=== PATIENT | male | born 1995 | race Caucasian/White ===

== ENCOUNTER 2019-12-01 13:55 | Emergency (ER) | payer SELFPAY ==
[2019-12-01] MEDS ORDERED: ONDANSETRON HCL INJ/PF 4 MG/2 ML SDV IV ONE (14:46)
[2019-12-01] MEDS ORDERED: NORMAL SALINE 1000 ML 1,000 ML IV ONE ×3 (14:46→17:34)
--- NOTE | 2019-12-01 14:48 | ER Document Report ---
ED Medical Screen (RME) - General Chief Complaint: Abdominal Pain Stated Complaint: ABDOMINAL PAIN Time Seen by Provider: 12/01/19 14:45 Notes: Patient is a 24-year-old male presents emergency department with a chief complaint of "alcohol poisoning." Patient reports last night he was drinking a large amount of liquor and beer. Patient unable to state how much he drank. Patient reports he has vomited all morning long but is unable to tell me how many times he has vomited. Patient denies recreational drug use or IV drug use. Patient reports generalized abdominal pain. - Related Data Allergies/Adverse Reactions: No Known Allergies Allergy (Verified 12/01/19 14:43) Physical Exam - Vital signs Vitals: Pulse Resp BP Pulse Ox 111 H 22 H 120/74 100 12/01/19 14:29 12/01/19 14:29 12/01/19 14:29 12/01/19 14:29 Course - Re-evaluation Re-evalutation: 12/01/19 14:47 Patient reports extremely nauseous in triage. No active vomiting. Patient require a thorough abdominal exam once placed in a private room on a stretcher. Patient is slightly tachycardic with a heart rate of 111. Will initiate basic labs, IV fluids and antipyretic. I have greeted and performed a rapid initial assessment of this patient. A comprehensive ED assessment and evaluation of the patient, analysis of test results and completion of the medical decision making process will be conducted by additional ED providers. - Vital Signs Vital signs: Temp Pulse Resp BP Pulse Ox 111 H 22 H 120/74 100 12/01/19 14:29 12/01/19 14:29 12/01/19 14:29 12/01/19 14:29
[2019-12-01 15:03] LABS: ABSOLUTE NEUT (AUTO) 17.2 10^3/uL (1.7-8.2); BASOPHILS % (AUTO) 0.2 % (0-2); HEMATOCRIT 48.9 % (37.9-51.0); LYMPHOCYTES % (AUTO) 5.4 % (13-45); MEAN CORPUSCULAR HEMOGLOBIN 31.5 pg (27.0-33.4); MEAN CORPUSCULAR HGB CONC 34.7 g/dL (32.0-36.0); MEAN CORPUSCULAR VOLUME 91 fl (80-97); MONOCYTES % (AUTO) 5.1 % (3-13); PLATELET COUNT 352 10^3/uL (150-450); RED BLOOD COUNT 5.38 10^6/uL (4.35-5.55); RED CELL DISTRIBUTION WIDTH 13.3 % (11.5-14.0); SEGMENTED NEUTROPHILS % (AUTO) 89.3 % (42-78); TOTAL CELLS COUNTED % (AUTO) 100 %; WHITE BLOOD COUNT 19.2 10^3/uL (4.0-10.5)
[2019-12-01 15:22] LABS: ALBUMIN 5.8 g/dL (3.5-5.0); ALCOHOL 33 mg/dL (NONE DETECTED); ALKALINE PHOSPHATASE 66 U/L (38-126); ASPARTATE AMINO TRANSFERASE 50 U/L (17-59); BILIRUBIN,DIRECT 0.3 mg/dL (0.0-0.4); BILIRUBIN,TOTAL 0.7 mg/dL (0.2-1.3); BLOOD UREA NITROGEN 27 mg/dL (7-20); CALCIUM 10.7 mg/dL (8.4-10.2); CHLORIDE 104 mmol/L (98-107); GLUCOSE 83 mg/dL (75-110); POTASSIUM 4.3 mmol/L (3.6-5.0); TOTAL PROTEIN 9.5 g/dL (6.3-8.2)
[2019-12-01 15:27] LABS: CARBON DIOXIDE 22 mmol/L (22-30)
[2019-12-01 15:28] LABS: ANION GAP 21 (5-19)
[2019-12-01] MEDS ORDERED: METOCLOPRAMIDE HCL INJ/PF 10 MG/2 ML SDV IV ONE (16:14)
--- NOTE | 2019-12-01 16:18 | ER Document Report ---
ED General - General Chief Complaint: ETOH Abuse Stated Complaint: ABDOMINAL PAIN Time Seen by Provider: 12/01/19 14:45 Mode of Arrival: Ambulatory Information source: Patient TRAVEL OUTSIDE OF THE [place] IN LAST 30 DAYS: No - HPI Onset: This morning Onset/Duration: Sudden Quality of pain: Achy Severity: Severe Pain Level: 1 Associated symptoms: Nausea, Vomiting Exacerbated by: Food Relieved by: Denies Similar symptoms previously: No Recently seen / treated by doctor: No Notes: 24 year old male with a history of alcohol abuse here for persistent nausea and vomiting since this morning with mild abdominal pains. The patient was drinking heavily last night (he cannot quantify but he says it is a lot) and this morning he has been throwing up nonstop and he has been having shaking chills. The patient denies fevers or sweats. The patient has never had alcohol withdrawal in the past. The patient says his abdomen hurts but he has no focal pain. The patient says he has been able to keep nothing down (not even water). - Related Data Allergies/Adverse Reactions: No Known Allergies Allergy (Verified 12/01/19 14:43) Past Medical History - General Information source: Patient - Social History Smoking Status: Current Every Day Smoker Chew tobacco use (# tins/day): No Frequency of alcohol use: Heavy Drug Abuse: None Lives with: Alone Family History: Reviewed & Not Pertinent Patient has suicidal ideation: No Patient has homicidal ideation: No Review of Systems - Review of Systems Constitutional: Chills EENT: No symptoms reported Cardiovascular: No symptoms reported Respiratory: No symptoms reported Gastrointestinal: Abdominal pain, Nausea, Vomiting Genitourinary: No symptoms reported Male Genitourinary: No symptoms reported Musculoskeletal: No symptoms reported Skin: No symptoms reported Hematologic/Lymphatic: No symptoms reported Neurological/Psychological: No symptoms reported -: Yes All other systems reviewed and negative Physical Exam - Vital signs Vitals: Pulse BP Pulse Ox 107 H 120/74 100 12/01/19 14:28 12/01/19 14:28 12/01/19 14:28 - Notes Notes: GENERAL: Somewhat ill-appearing, wrapped in blankets, well-nourished and in no acute distress. HEAD: Atraumatic, normocephalic. EYES: Pupils equal round and reactive to light, extraocular movements intact, sclera anicteric, conjunctiva are normal. ENT: Nares patent, oropharynx clear without exudates. Moist mucous membranes. NECK: Normal range of motion, supple without lymphadenopathy or JVD. LUNGS: Breath sounds clear to auscultation bilaterally and equal. No wheezes rales or rhonchi. HEART: Regular rate and rhythm without murmurs, rubs or gallops. ABDOMEN: Soft, nontender, normoactive bowel sounds. No guarding, no rebound. No masses appreciated. EXTREMITIES: Normal range of motion, no pitting or edema. No clubbing or cyanos is. NEUROLOGICAL: Cranial nerves II through XII grossly intact. Normal speech, normal gait. PSYCH: Normal mood, normal affect. SKIN: Warm, Dry, normal turgor, no rashes or lesions noted. Course - Re-evaluation Re-evalutation: 12/01/19 16:27 The patient was drinking heavily last night and today he has been vomiting all day. The patient's labs show he has an anion gap acidosis. Will treat patient with fluids and antiemetics and recheck a chemistry to ensure his anion gap closes. Patient denies daily drinking and he says he just binged last night. 12/01/19 20:34 The patient's anion gap and lactic acid normalized after IV fluids. Patient is able to tolerate POs at this point. Patient is safe for outpatient follow up. Will DC patient with Zofran. - Vital Signs Vital signs: Temp Pulse Resp BP Pulse Ox 98.5 F 103 H 16 123/70 100 12/01/19 17:33 12/01/19 17:33 12/01/19 17:33 12/01/19 17:33 12/01/19 17:33 - Laboratory Result Diagrams: 12/01/19 14:50 12/01/19 17:02 Laboratory results interpreted by me: 12/01/19 12/01/19 12/01/19 14:50 14:50 17:02 WBC 19.2 H Lymph % (Auto) 5.4 L Absolute Neuts (auto) 17.2 H Seg Neutrophils % 89.3 H Sodium 147.3 H Chloride Anion Gap 21 H BUN 27 H Lactic Acid 3.6 H Calcium 10.7 H Total Protein 9.5 H Albumin 5.8 H 12/01/19 17:02 WBC Lymph % (Auto) Absolute Neuts (auto) Seg Neutrophils % Sodium Chloride 108 H Anion Gap BUN 28 H Lactic Acid Calcium Total Protein Albumin Discharge - Discharge Clinical Impression: Alcohol abuse, Acidosis Condition: Stable Disposition: HOME, SELF-CARE Instructions: Acute Alcohol Intoxication ([facility]) Additional Instructions: Use Zofran as needed for nausea. Drink plenty of fluids in the days to come. Follow up with a primary care doctor. If you dont have a primary care doctor, follow up with the doctor listed in your paperwork. Prescriptions: Ondansetron [Zofran Odt 4 mg Tablet] 1 - 2 tab PO Q4H PRN #15 tab.rapdis PRN Reason: For Nausea/Vomiting
[2019-12-01 17:28] LABS: ANION GAP 12 (5-19); BLOOD UREA NITROGEN 28 mg/dL (7-20); CALCIUM 9.4 mg/dL (8.4-10.2); CARBON DIOXIDE 25 mmol/L (22-30); CHLORIDE 108 mmol/L (98-107); GLUCOSE 84 mg/dL (75-110); POTASSIUM 4.7 mmol/L (3.6-5.0)
[2019-12-01 18:07] LABS: URINE AMPHETAMINES SCREEN NEGATIVE; URINE BARBITURATES SCREEN NEGATIVE; URINE BENZODIAZEPINES SCREEN NEGATIVE; URINE COCAINE SCREEN NEGATIVE; URINE METHADONE SCREEN NEGATIVE; URINE PHENCYCLIDINE SCREEN NEGATIVE
[2019-12-01 18:12] LABS: URINE MARIJUANA (THC) SCREEN UNCONFIRMED POSITIVE
[2019-12-01] MEDS ORDERED: ONDANSETRON ODT 4 MG TAB (6 TAB/ER DISP) PO PRN (20:33)
[2019-12-01 20:43] VITALS: BP 106/52
== END 2019-12-01 20:48 | disposition home or self-care (01) ==
LOC: ER 13:55
DX: F10.10 Alcohol abuse, uncomplicated (principal); E87.2 Acidosis; R10.9 Unspecified abdominal pain; F17.200 Nicotine dependence, unspecified, uncomplicated
CPT/HCPCS: 99284; 96361; 96374; 96375; 36415; 82010; 80307 ×2; 83605; 83690; 85025; 80053; J2765; J2405; J7030